=== PATIENT | female | born 1955 | race Caucasian/White ===

== ENCOUNTER 2018-01-25 11:56 | Emergency (ER) | payer SELFPAY ==
[2018-01-25 12:17] LABS: APPEARANCE,URINE CLOUDY; BILIRUBIN,URINE NEGATIVE (NEGATIVE); COLOR,URINE YELLOW; GLUCOSE, URINE NEGATIVE (NEGATIVE); KETONES,URINE NEGATIVE (NEGATIVE); LEUKOCYTE ESTERASE,URINE TRACE (NEGATIVE); NITRITE,URINE NEGATIVE (NEGATIVE); PROTEIN,URINE NEGATIVE (NEGATIVE); URINE SPECIFIC GRAVITY 1.008; UROBILINOGEN,URINE NEGATIVE mg/dL (<2.0)
[2018-01-25 12:30] LABS: URINE AMPHETAMINES SCREEN NEGATIVE; URINE BARBITURATES SCREEN NEGATIVE; URINE BENZODIAZEPINES SCREEN UNCONFIRMED POSITIVE; URINE COCAINE SCREEN NEGATIVE; URINE MARIJUANA (THC) SCREEN NEGATIVE; URINE METHADONE SCREEN NEGATIVE; URINE PHENCYCLIDINE SCREEN NEGATIVE
--- NOTE | 2018-01-25 12:32 | ER Document Report ---
ED Medical Screen (RME) - General Chief Complaint: Psych Problem Stated Complaint: PSYCH EVAL Time Seen by Provider: 01/25/18 12:30 Notes: Patient states that she was sent here from her family physician's office. She states she was upset about her diabetes and told her family physician that she was going to "jump off a bridge". She states that this was just a figure speech and she did not mean it. She states she is not suicidal now. She denies any type of hallucinations. She states she does follow-up regularly with psychiatry and does have an appointment tomorrow. TRAVEL OUTSIDE OF THE [place] IN LAST 30 DAYS: No - Related Data Allergies/Adverse Reactions: No Known Allergies Allergy (Unverified 07/31/16 01:30) Past Medical History - Social History Frequency of alcohol use: None Drug Abuse: None - Past Medical History Cardiac Medical History: Reports: Hx Hypertension Endocrine Medical History: Reports: Hx Diabetes Mellitus Type 2 Renal/ Medical History: Denies: Hx Peritoneal Dialysis Psychiatric Medical History: Reports: Hx Bipolar Disorder - pt unsure of dx, Hx Depression Physical Exam - Vital signs Vitals: Temp Pulse Resp BP Pulse Ox 97.7 F 135 H 22 H 186/106 H 96 01/25/18 12:06 01/25/18 12:06 01/25/18 12:06 01/25/18 12:06 01/25/18 12:06 Course - Vital Signs Vital signs: Temp Pulse Resp BP Pulse Ox 97.7 F 135 H 22 H 186/106 H 96 01/25/18 12:06 01/25/18 12:06 01/25/18 12:06 01/25/18 12:06 01/25/18 12:06 - Laboratory Laboratory results interpreted by me: 01/25/18 11:55 Urine Blood MODERATE H Ur Leukocyte Esterase TRACE H
[2018-01-25 13:46] LABS: ABSOLUTE BASOPHILS # (AUTO) 0.2 10^3/uL (0.0-0.2); ABSOLUTE EOSINOPHILS # (AUTO) 0.2 10^3/uL (0.0-0.6); ABSOLUTE LYMPHOCYTES (AUTO) 2.3 10^3/uL (0.5-4.7); ABSOLUTE MONOCYTES (AUTO) 0.9 10^3/uL (0.1-1.4); ABSOLUTE NEUT (AUTO) 10.9 10^3/uL (1.7-8.2); BASOPHILS % (AUTO) 1.2 % (0-2); EOSINOPHILS % (AUTO) 1.1 % (0-6); HEMATOCRIT 38.9 % (36.0-47.0); HEMOGLOBIN 13.3 g/dL (12.0-15.5); MEAN CORPUSCULAR HEMOGLOBIN 32.2 pg (27.0-33.4); MEAN CORPUSCULAR HGB CONC 34.2 g/dL (32.0-36.0); MEAN CORPUSCULAR VOLUME 94 fl (80-97); MONOCYTES % (AUTO) 6.5 % (3-13); PLATELET COUNT 440 10^3/uL (150-450); RED BLOOD COUNT 4.13 10^6/uL (3.72-5.28); RED CELL DISTRIBUTION WIDTH 13.5 % (11.5-14.0); SEGMENTED NEUTROPHILS % (AUTO) 75.2 % (42-78); TOTAL CELLS COUNTED % (AUTO) 100 %; WHITE BLOOD COUNT 14.4 10^3/uL (4.0-10.5)
--- NOTE | 2018-01-25 14:15 | ER Document Report ---
ED Psych Disorder / Suicide <DRAGAN ERWIN - Last Filed: 01/25/18 16:16> - General TRAVEL OUTSIDE OF THE [place] IN LAST 30 DAYS: No <JENELLE,LUPILLO - Last Filed: 01/25/18 19:59> - General Chief Complaint: Psych Problem Stated Complaint: PSYCH EVAL Time Seen by Provider: 01/25/18 12:30 Notes: Patient was referred here from her primary care provider's office after saying today that she wanted to kill herself by jumping off a bridge. Patient tells me now that she was just upset because her blood sugar was about 200 when it was checked today. She was just diagnosed with diabetes about a month ago and started on oral medication. She says that she was not told the parameters of the blood sugar and what was significantly elevated, etc. She denies feeling truly suicidal. She lives locally with her mother, and she seems to indicate that her mother as part of the problem because her mother is critical of everything she eats and shares the patient's medical history and condition with neighbors and friends. Patient moved here a couple of years ago to help out with her dying father had dementia. He is now . Patient denies feeling sick in any way. Says she feels fine. Denies any fevers or chills. No URI or cough or chest congestion. Patient has a rapid heartbeat in triage, 135, and at the bedside now, her heart rate is 120 by me manually. Patient says that she has always had a rapid heartbeat and has had it checked out thoroughly. When she moved to 2 years ago she said that she had a complete workup including an echo, etc. and no cause has been found and no medications prescribed. Denies any chest pains currently. Patient says that she has anxiety and is also upset about being here , having been transported here by local law enforcement. She thinks that may be contributing to her heart rate being even higher than it usually is for her, although she does not know what her normal resting heart radius. (LUPILLO ALMANZAR) - Related Data Allergies/Adverse Reactions: No Known Allergies Allergy (Unverified 07/31/16 01:30) Past Medical History - Social History Smoking Status: Never Smoker Frequency of alcohol use: None Drug Abuse: None Occupation: Nurse Family History: Reviewed & Not Pertinent, Hypertension Patient has suicidal ideation: No Patient has homicidal ideation: No - Past Medical History Cardiac Medical History: Reports: Hx Hypertension, Other - Tachycardia Endocrine Medical History: Reports: Hx Diabetes Mellitus Type 2, Hx Hypothyroidism Malignancy Medical History: Reports: Other - Hodgkin's lymphoma diagnosed 40 years ago and treated with chemotherapy Psychiatric Medical History: Reports: Hx Anxiety, Hx Bipolar Disorder - pt unsure of dx, Hx Depression <JENELLELUPILLO AHN - Last Filed: 01/25/18 19:59> Review of Systems <DRAGAN ERWIN - Last Filed: 01/25/18 16:16> <LUPILLO ALMANZAR - Last Filed: 01/25/18 19:59> - Review of Systems Notes: REVIEW OF SYSTEMS: CONSTITUTIONAL : Denies fever. EENT: Denies eye, ear, nose or mouth or throat pain or other symptoms. CARDIOVASCULAR: Denies chest pain. RESPIRATORY: Denies cough, chest congestion, or shortness of breath. GASTROINTESTINAL: Denies abdominal pain or nausea, vomiting, or diarrhea. GENITOURINARY: Denies difficulty or painful urinating, urinary frequency, blood in urine. MUSCULOSKELETAL: Denies back or neck pain. Denies joint pain or swelling. SKIN: Denies rash or skin lesions. NEUROLOGICAL: Denies LOC or altered mental status. Denies headache. Denies sensory loss or motor deficits. Psychiatric: Admits to anxiety and has an appointment with her psychiatrist tomorrow. ALL OTHER SYSTEMS REVIEWED AND NEGATIVE. (JENELLELUPILLO) Physical Exam <DRAGAN ERWIN - Last Filed: 01/25/18 16:16> - Vital signs Interpretation: Hypertensive, Tachycardic <JENELLELUPILLO - Last Filed: 01/25/18 19:59> - Vital signs Vitals: Temp Pulse Resp BP Pulse Ox 97.7 F 135 H 22 H 186/106 H 96 01/25/18 12:06 01/25/18 12:06 01/25/18 12:06 01/25/18 12:06 01/25/18 12:06 - Notes Notes: PHYSICAL EXAMINATION: GENERAL: Well-appearing, in no acute distress. Very pleasant and interactive. Heart rate up in triage at 135, but down to about 110 by me at the bedside. EKG at 105. HEAD: Atraumatic, normocephalic. EYES: Pupils equal round and reactive to light, extraocular movements intact. ENT: oropharynx clear without exudates. Moist mucous membranes. NECK: Normal range of motion, supple. LUNGS: Breath sounds clear and equal bilaterally. HEART: Regular rate and rhythm without murmurs. ABDOMEN: Soft, nontender. No guarding or rebound. No masses. BACK: No tenderness throughout entire back. EXTREMITIES: Normal range of motion without pain. NEUROLOGICAL: Normal speech, normal gait. Normal sensory, motor, and reflex exams. Awake, alert, and oriented x3. Cranial nerves normal. PSYCH: Normal mood, normal affect. Denies feeling suicidal. SKIN: Warm, dry, no rashes. (LUPILLO ALMANZAR) Course - Laboratory Result Diagrams: 01/25/18 13:08 01/25/18 13:08 <DRAGAN ERWIN - Last Filed: 01/25/18 16:16> - Laboratory Result Diagrams: 01/25/18 13:08 01/25/18 13:08 - EKG Interpretation by Mo EKG shows normal: Sinus rhythm Rate: Tachycardia - Rate of 115. <LUPILLO ALMANZAR - Last Filed: 01/25/18 19:59> - Vital Signs Vital signs: Temp Pulse Resp BP Pulse Ox 98.2 F 101 H 20 129/90 H 99 01/25/18 16:30 01/25/18 16:30 01/25/18 16:30 01/25/18 16:30 01/25/18 16:30 - Laboratory Laboratory results interpreted by me: 01/25/18 01/25/18 01/25/18 11:55 13:08 13:08 WBC 14.4 H Absolute Neutrophils 10.9 H Sodium 146.5 H Anion Gap 21 H Glucose 122 H AST 56 H ALT 92 H Alkaline Phosphatase 150 H Urine Blood MODERATE H Ur Leukocyte Esterase TRACE H Salicylates < 1.0 L Acetaminophen < 10 L - EKG Interpretation by Me Additional EKG results interpreted by me: 01/25/18 15:04 Other than the heart rate, patient's EKG is normal. (LUPILLO ALMANZAR) Discharge <DRAGAN ERWIN - Last Filed: 01/25/18 16:16> <LUPILLO ALMANZAR - Last Filed: 01/25/18 19:59> - Discharge Clinical Impression: Problem related to social environment, unspecified, Depression with anxiety Condition: Stable Disposition: HOME, SELF-CARE Additional Instructions: DEPRESSION: Your evaluation reveals that you have mental depression. While symptoms may be vague, they often include disturbance of sleep, fatigue, loss of appetite , and general loss of interest in life. While depression may be a side effect of drugs, or a reaction to a major change in your life, many cases have no known cause. If depression is acute, and related to a major loss in your life, you can expect it to clear completely with time. If you have been depressed a long time , are prone to repeated bouts of depression or low mood, or have been thinking of suicide, get help. Depression can be treated with anti-depressant medication and counselling. Long-term depression will often take a few weeks to clear, even with appropriate medication. Follow-up care is important. SUICIDAL IDEATION: Suicidal ideation is a common medical term for thoughts about suicide, which may be as detailed as a formulated plan, without the suicidal act itself. Although most people who undergo suicidal ideation do not commit suicide, some go on to make suicide attempts. The range of suicidal ideation varies greatly from fleeting to detailed planning, role playing, and unsuccessful attempts. While thoughts about suicide are common, most people do not carry out serious actions to commit suicide. Based upon your evaluation and discussion with you, we do not believe you are currently at risk to act upon your thoughts of suicide. You have agreed to return to the Emergency Department, at any time , if you feel inclined to act upon your suicidal thoughts. FOLLOW-UP CARE: You presented to the Emergency Department due to making a comment regarding suicidal ideation, while in the Emergency Department you received a mental health assessment. Based on your assessment it was determined that your symptoms can be managed in an outpatient setting. You mentioned you are experiencing stresses, we recommend you follow up with your psychiatric provider and outpatient therapist at [facility] as soon as possible. We coordinated with your mom Yumiko who had no concerns regarding the comments you made and explained you use those words as humor. We are discharging you to the care and support of your mother. Referrals: [facility] [Provider Group] - Follow up in 3-5 days
[2018-01-25 14:16] LABS: ACETAMINOPHEN < 10 ug/mL (10-30); ALANINE AMINOTRANSFERASE 92 U/L (9-52); ALBUMIN 4.7 g/dL (3.5-5.0); ALCOHOL < 10 mg/dL (NONE DETECTED); ALKALINE PHOSPHATASE 150 U/L (38-126); ASPARTATE AMINO TRANSFERASE 56 U/L (14-36); BILIRUBIN,DIRECT 0.4 mg/dL (0.0-0.4); BILIRUBIN,TOTAL 0.4 mg/dL (0.2-1.3); BLOOD UREA NITROGEN 15 mg/dL (7-20); CALCIUM 9.9 mg/dL (8.4-10.2); GLUCOSE 122 mg/dL (75-110); POTASSIUM 4.2 mmol/L (3.6-5.0); SALICYLATE < 1.0 mg/dL (2.0-20.0)
[2018-01-25 14:21] LABS: ANION GAP 21 (5-19); CARBON DIOXIDE 28 mmol/L (22-30); CHLORIDE 98 mmol/L (98-107); SODIUM 146.5 mmol/L (137-145)
[2018-01-25 15:42] LABS: FREE T4 (FREE THYROXINE) 1.25 ng/dL (0.78-2.19)
[2018-01-25 15:56] LABS: THYROID STIMULATING HORMONE 2.46 uIU/mL (0.47-4.68)
--- NOTE | 2018-01-25 16:16 | PSYCHOLOGICAL NOTE ---
Psych Note - Psych Note Psych Note: Reason for evaluation: Alleged Suicidal ideation Eval: 2:22 pm final disposition 3:30 pm Contact Permissions: Yumiko Viera [phone] Patient is a 62 year old female. Patient reports she was feeling frustrated while at her doctor's office and made the comment "I just want to jump off a bridge". Patient reports she always makes comments like that and had learned her lesson about using grammar around professionals. 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 Patient reports she was crying because she just found out she had diabetes 4 weeks ago and there is a lot of other things going on and stresses in her life but she did not feel suicidal and has never felt that way before. Patient reports "I does have bad humor". Patient reports mental health can coordinate with her mother. Patient reports she has never had an inpatient psychiatric stay before. Patient reports she has a diagnosis of depression and anxiety from [facility] but states that she sees her therapist and medication management provider regularly. Patient reports at this time her depression is in remission and she does not feel depressed at all. Patient reports the crying was out of frustration and feels that everyone should be entitled to cry every now and again. Collateral Information: Patient's mother Yumiko ( present in room) Patient's mother reports she has never been concerned for patient having suicidal ideation. Patient's mother reports patient has never been to an inpatient psychiatric hospital before. Patient's mother reports that she has not concerned for the safety of patient because she makes comments like that all the time joking. Impression/Plan: Patient is psychiatrically cleared. Clinician observed patient is experiencing stresses but is not endorsing suicidal ideation. Clinician observed patient is laughing has a bright affect logical and linear thinking, is coherent and is laughing with her mother about the situation. Patient denied SI/HI and explained she utilizes that statement as "bad humor". Yumiko who had no concerns regarding the comments you made and explained you use those words as humor. Mental health discharged patient to the care and support of your mother. Attending physician in agreement with plan. Consulted with Dr. Melo regarding the management and care of patient.
[2018-01-25 16:32] VITALS: BP 129/90
--- NOTE | 2018-01-25 19:39 | EKG REPORT ---
SEVERITY:- BORDERLINE ECG - SINUS TACHYCARDIA BORDERLINE T ABNORMALITIES, INFERIOR LEADS : Confirmed by: Lazaro Alfonso MD 25-Jan-2018 19:38:56
== END 2018-01-25 16:32 | disposition home or self-care (01) ==
LOC: ER 11:56
DX: F41.8 Other specified anxiety disorders (principal); Z62.820 Parent-biological child conflict; E11.9 Type 2 diabetes mellitus without complications; Z79.84 Long term (current) use of oral hypoglycemic drugs; R00.0 Tachycardia, unspecified; I10 Essential (primary) hypertension
CPT/HCPCS: 36415; 80053; 80307; 81001; 84439; 84443; 85025; 93005; 93010; 99285